=== PATIENT | male | born 1985 | race American Indian/Alaskan Native ===

== ENCOUNTER 2016-04-28 08:34 | Emergency (ER) | payer SELFPAY ==
[2016-04-28 09:01] VITALS: BP 143/111
[2016-04-28] MEDS ORDERED: Sodium Chloride 0.9% 10 ML Syringe FLUSH PRN (09:07)
[2016-04-28] MEDS ORDERED: Ondansetron 4 MG/2 ML SDV IV ONE (09:08)
[2016-04-28] MEDS ORDERED: Ketorolac 30 MG/ML SDV IVPUSH ONE (09:08)
--- NOTE | 2016-04-28 09:10 | EDM.PDOC ---
ED HPI RENAL/ - General Chief Complaint: Genitourinary Problem Stated Complaint: UNABLE TO EAT, STOMACH PAIN Time Seen by Provider: 04/28/16 09:05 Source of Information: Reports: Patient, Old records, RN, RN notes reviewed History Limitations: Reports: No limitations - History of Present Illness INITIAL COMMENTS - FREE TEXT/NARRATIVE: C/O 1 weeks duration of fever/chills, mild frontal CHAPMAN, suprapubic pressure and nausea. Now c/o LUQ abdominal pain and left flank pain. Admits to mild sore throat. Denies dysuria, hematuria, STD exposure, or penile discharge. 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 [No Known Home Meds] 04/28/16 [History] Past Medical History HEENT History: Reports: Other (see below) (dental decay) Musculoskeletal History: Reports: Back pain, chronic Psychiatric History: Reports: Anxiety, Panic attack Social & Family History - Family History Family Medical History: Noncontributory - Tobacco Use Smoking Status *Q: Current Every Day Smoker Years of Tobacco use: 10 Packs/Tins Daily: 1 Used Tobacco, but Quit: No Second Hand Smoke Exposure: Yes - Caffeine Use Caffeine Use: Reports: Soda - Alcohol Use Days Per Week of Alcohol Use: 0 - Recreational Drug Use Recreational Drug Use: No - Sexual History Sexual History: Reports: Sexually active - Living Situation & Occupation Living situation: Reports: with family Occupation: employed ED ROS GENERAL - Review of Systems Review Of Systems: ROS reveals no pertinent complaints other than HPI. ED EXAM, RENAL/ - Physical Exam Exam: See Below Exam Limited By: No limitations General Appearance: alert, WD/WN, no apparent distress Eye Exam: bilateral eye: normal inspection Ears: normal external exam, normal canal, hearing grossly normal, normal TMs Nose: normal inspection, normal mucosa, no blood Throat/Mouth: Normal lips, Normal teeth, Normal voice, No airway compromise, Other (pharyngeal erythema, no exudates) Head: atraumatic, normocephalic Neck: normal inspection, supple, non-tender, full range of motion. No: lymphadenopathy (L), lymphadenopathy (R) Respiratory/Chest: no respiratory distress, lungs clear, normal breath sounds, no accessory muscle use, chest non-tender Cardiovascular: regular rate, rhythm, tachycardia GI/Abdominal: normal bowel sounds, soft, no organomegaly, no distention, no abnormal bruit, no mass, tender (LUQ and left CVA). No: guarding, rigid, rebound (Male) Exam: Deferred Rectal (Males) Exam: Deferred Back Exam: full range of motion, CVA tenderness (L). No: decreased range of motion, muscle spasm, paraspinal tenderness, vertebral tenderness Extremities: normal inspection, normal range of motion, non-tender, no pedal edema, normal capillary refill. No: joint swelling Neurological: alert, oriented, CN II-XII intact, normal cognition, normal gait, no motor/sensory deficits Psychiatric: normal affect, normal mood Skin Exam: Warm, Dry, Intact, Normal color, No rash Course - Vital Signs Last Recorded V/S: Last Vital Signs Temp 36.6 C 04/28/16 09:01 Pulse 108 H 04/28/16 09:01 Resp 16 04/28/16 09:01 BP 143/111 H 04/28/16 09:01 Pulse Ox 100 04/28/16 09:01 - Orders/Labs/Meds Orders: Active Orders 24 hr Category Date Time Status Peripheral IV Care [RC] . DIRECTED Care 04/28/16 09:07 Active CHLAMYDIA TRACHOMATIS/GC AMPLF Routine Lab 04/28/16 08:50 Received Sodium Chloride 0.9% [Saline Flush] Med 04/28/16 09:07 Active 10 ml FLUSH ASDIRECTED PRN Peripheral IV Insertion Adult [OM.PC] Stat Oth 04/28/16 09:07 Ordered Medication Orders Sodium Chloride (Saline Flush) 10 ml FLUSH ASDIRECTED PRN PRN Reason: Keep Vein Open Last Admin: 04/28/16 09:21 Dose: 10 ml Labs: Laboratory Tests 04/28/16 04/28/16 04/28/16 Range/Units 08:50 08:50 09:10 WBC 6.2 (5.0-10.0) 10^3/uL RBC 5.35 (4.6-6.2) 10^6/uL Hgb 16.0 (14.0-18.0) g/dL Hct 47.0 (40.0-54.0) % MCV 87.9 (80-100) fL MCH 29.9 (27.0-34.0) pg MCHC 34.0 (33.0-35.0) g/dL Plt Count 257 (150-450) 10^3/uL Neut % (Auto) 68.8 (42.2-75.2) % Lymph % (Auto) 25.4 (20.5-50.1) % [place] % (Auto) 4.7 (2-8) % Eos % (Auto) 0.8 L (1.0-3.0) % Baso % (Auto) 0.3 (0.0-1.0) % Sodium (135-145) mmol/L Potassium (3.6-5.0) mmol/L Chloride (101-111) mmol/L Carbon Dioxide (21.0-31.0) mmol/L Anion Gap BUN (7-18) mg/dL Creatinine (0.6-1.3) mg/dL Est Cr Clr Drug Dosing mL/min Estimated GFR (MDRD) BUN/Creatinine Ratio Glucose (74-105) mg/dL Calcium (8.4-10.2) mg/dl Total Bilirubin (0.2-1.0) mg/dL AST (10-42) IU/L ALT (10-60) IU/L Alkaline Phosphatase (42-121) IU/L Total Protein (6.7-8.2) g/dl Albumin (3.2-5.5) g/dl Globulin Albumin/Globulin Ratio Amylase (28-100) U/L Lipase (22-51) U/L Urine Color Yellow (YELLOW) Urine Appearance Slightly cloudy (CLEAR) Urine pH 7.5 (5.0-9.0) Ur Specific [place] 1.020 (1.005-1.030) Urine Protein Negative (NEGATIVE) Urine Glucose (UA) Negative (NEGATIVE) Urine Ketones Negative (NEGATIVE) Urine Occult Blood Negative (NEGATIVE) Urine Nitrite Negative (NEGATIVE) Urine Bilirubin Negative (NEGATIVE) Urine Urobilinogen 0.2 (0.2-1.0) mg/dL Ur Leukocyte Esterase Negative (NEGATIVE) Urine RBC 0-5 /HPF Urine WBC 0-5 (0-5/HPF) /HPF Ur Epithelial Cells Rare /HPF Urine Mucus Few H /LPF Urine Opiates Screen Negative (NEGATIVE) Ur Oxycodone Screen Negative (NEGATIVE) Urine Methadone Screen Negative (NEGATIVE) Ur Barbiturates Screen Negative (NEGATIVE) U Tricyclic Antidepress Negative (NEGATIVE) Ur Phencyclidine Scrn Negative (NEGATIVE) Ur Amphetamine Screen Negative (NEGATIVE) U Methamphetamines Scrn Negative (NEGATIVE) Urine MDMA Screen Negative (NEGATIVE) U Benzodiazepines Scrn Negative (NEGATIVE) Urine Cocaine Screen Negative (NEGATIVE) U Marijuana (THC) Screen Negative (NEGATIVE) 04/28/16 Range/Units 09:10 WBC (5.0-10.0) 10^3/uL RBC (4.6-6.2) 10^6/uL Hgb (14.0-18.0) g/dL Hct (40.0-54.0) % MCV (80-100) fL MCH (27.0-34.0) pg MCHC (33.0-35.0) g/dL Plt Count (150-450) 10^3/uL Neut % (Auto) (42.2-75.2) % Lymph % (Auto) (20.5-50.1) % [place] % (Auto) (2-8) % Eos % (Auto) (1.0-3.0) % Baso % (Auto) (0.0-1.0) % Sodium 137 (135-145) mmol/L Potassium 3.5 L (3.6-5.0) mmol/L Chloride 101 (101-111) mmol/L Carbon Dioxide 26.0 (21.0-31.0) mmol/L Anion Gap 13.5 BUN 10 (7-18) mg/dL Creatinine 0.8 (0.6-1.3) mg/dL Est Cr Clr Drug Dosing 145.11 mL/min Estimated GFR (MDRD) > 60 BUN/Creatinine Ratio 12.50 Glucose 108 H (74-105) mg/dL Calcium 9.1 (8.4-10.2) mg/dl Total Bilirubin 1.2 H (0.2-1.0) mg/dL AST 27 (10-42) IU/L ALT 36 (10-60) IU/L Alkaline Phosphatase 65 (42-121) IU/L Total Protein 7.7 (6.7-8.2) g/dl Albumin 4.5 (3.2-5.5) g/dl Globulin 3.2 Albumin/Globulin Ratio 1.41 Amylase 48 (28-100) U/L Lipase 27 (22-51) U/L Urine Color (YELLOW) Urine Appearance (CLEAR) Urine pH (5.0-9.0) Ur Specific [place] (1.005-1.030) Urine Protein (NEGATIVE) Urine Glucose (UA) (NEGATIVE) Urine Ketones (NEGATIVE) Urine Occult Blood (NEGATIVE) Urine Nitrite (NEGATIVE) Urine Bilirubin (NEGATIVE) Urine Urobilinogen (0.2-1.0) mg/dL Ur Leukocyte Esterase (NEGATIVE) Urine RBC /HPF Urine WBC (0-5/HPF) /HPF Ur Epithelial Cells /HPF Urine Mucus /LPF Urine Opiates Screen (NEGATIVE) Ur Oxycodone Screen (NEGATIVE) Urine Methadone Screen (NEGATIVE) Ur Barbiturates Screen (NEGATIVE) U Tricyclic Antidepress (NEGATIVE) Ur Phencyclidine Scrn (NEGATIVE) Ur Amphetamine Screen (NEGATIVE) U Methamphetamines Scrn (NEGATIVE) Urine MDMA Screen (NEGATIVE) U Benzodiazepines Scrn (NEGATIVE) Urine Cocaine Screen (NEGATIVE) U Marijuana (THC) Screen (NEGATIVE) Rapid strep: Positive Meds: Medications Generic Name Dose Route Start Last Admin Trade Name Freq PRN Reason Stop Dose Admin Sodium Chloride 10 ml 04/28/16 09:07 04/28/16 09:21 Saline Flush FLUSH 10 ml ASDIRECTED PRN Administration Keep Vein Open Discontinued Medications Generic Name Dose Route Start Last Admin Trade Name Freq PRN Reason Stop Dose Admin Azithromycin 1,000 mg 04/28/16 09:31 04/28/16 09:39 Zithromax PO 04/28/16 09:32 1,000 mg ONETIME ONE Administration Sodium Chloride 1,000 mls @ 999 mls/hr 04/28/16 09:30 04/28/16 09:38 Normal Saline IV 04/28/16 10:30 999 mls/hr .BOLUS ONE Administration Ceftriaxone Sodium 1 gm/ 50 mls @ 100 mls/hr 04/28/16 09:31 04/28/16 09:39 Sodium Chloride IV 04/28/16 10:00 100 mls/hr ONETIME ONE Administration Ketorolac Tromethamine 30 mg 04/28/16 09:08 04/28/16 09:21 Toradol IVPUSH 04/28/16 09:09 30 mg ONETIME ONE Administration Ondansetron HCl 4 mg 04/28/16 09:08 04/28/16 09:21 Zofran IV 04/28/16 09:09 4 mg ONETIME ONE Administration Departure - Departure Time of Disposition: 10:47 Disposition: Home, Self-Care 01 Condition: good Clinical Impression: Strep pharyngitis, Acute left flank pain Instructions: Strep Throat, [id number], Flank Pain, [id number] Forms: ED Department Discharge Additional Instructions: Rx: Amoxicillin 500mg Follow up in clinic in 5 to 7 days for recheck. - My Orders Last 24 Hours: My Active Orders 04/28/16 08:50 CHLAMYDIA TRACHOMATIS/GC AMPLF Routine 04/28/16 09:07 Peripheral IV Care [RC] . DIRECTED Sodium Chloride 0.9% [Saline Flush] 10 ml FLUSH ASDIRECTED PRN Peripheral IV Insertion Adult [OM.PC] Stat - Assessment/Plan Last 24 Hours: My Active Orders 04/28/16 08:50 CHLAMYDIA TRACHOMATIS/GC AMPLF Routine 04/28/16 09:07 Peripheral IV Care [RC] . DIRECTED Sodium Chloride 0.9% [Saline Flush] 10 ml FLUSH ASDIRECTED PRN Peripheral IV Insertion Adult [OM.PC] Stat
[2016-04-28] MEDS ORDERED: Sodium Chloride 0.9% 1,000 ML IV ONE (09:30)
[2016-04-28] MEDS ORDERED: Azithromycin 250 MG Tab PO ONE (09:31)
[2016-04-28] MEDS ORDERED: cefTRIAXone 1 GM in Sodium Chloride 0.9% 50 ML IV ONE (09:31)
[2016-04-28 09:38] LABS: CHLORIDE,CL 101 mmol/L (101-111); SODIUM,NA 137 mmol/L (135-145)
== END 2016-04-28 11:05 | disposition home or self-care (01) ==
LOC: DL.ED 08:34
DX: J02.0 Streptococcal pharyngitis (principal); R10.12 Left upper quadrant pain; F41.9 Anxiety disorder, unspecified; F17.210 Nicotine dependence, cigarettes, uncomplicated
CPT/HCPCS: 36415; 80053; 80305; 81001; 82150; 83690; 85025; 87430; 87491; 87591; 96361; 96365; 96375; 99284; A9270; J0696; J1885; J2405; J7030; J7050

== ENCOUNTER 2016-05-03 18:13 | Emergency (ER) | payer OTHER ==
[2016-05-03 20:08] LABS: CHLORIDE,CL 104 mmol/L (101-111); SODIUM,NA 139 mmol/L (135-145)
[2016-05-03] MEDS ORDERED: Ketorolac 30 MG/ML SDV IVPUSH ONE (20:38)
[2016-05-03] MEDS ORDERED: Iopamidol 612 MG/ML 100 ML Bottle IVPUSH ONE (20:38)
[2016-05-03] MEDS ORDERED: Iopamidol 612 MG/ML 75 ML Bottle IVPUSH ONE (20:39)
[2016-05-03] MEDS ORDERED: Sodium Chloride 0.9% 1,000 ML IV SCH (20:45)
--- NOTE | 2016-05-03 22:03 | EDM.PDOC ---
ED HPI GI/ABDOMINAL - General Chief Complaint: Genitourinary Problem Stated Complaint: KIDNEY INFECTION Time Seen by Provider: 05/03/16 19:10 Source of Information: Reports: Patient History Limitations: Reports: No limitations - History of Present Illness INITIAL COMMENTS - FREE TEXT/NARRATIVE: c/o left side abdominal pain, Reports seen on Tuesday for kidney infection, pain not improving, vomited one time this am - Related Data Allergies/ADRs: Allergies Allergy/AdvReac Type Severity Reaction Status Date / Time No Known Allergies Allergy Verified 05/03/16 18:51 Home Meds: Home Meds Amoxicillin [Amoxil] 500 mg PO Q8H 05/03/16 [History] Ibuprofen [Advil] 600 mg PO Q6H PRN 05/03/16 [History] Past Medical History - Past Health History Medical/Surgical History: Denies Medical/Surgical History HEENT History: Reports: Other (see below) (dental decay) Cardiovascular History: Reports: None Respiratory History: Reports: None Gastrointestinal History: Reports: None Genitourinary History: Reports: None Musculoskeletal History: Reports: Back pain, chronic Neurological History: Reports: None Psychiatric History: Reports: Anxiety, Panic attack Endocrine/Metabolic History: Reports: None Hematologic History: Reports: None Immunologic History: Reports: None Oncologic (Cancer) History: Reports: None Dermatologic History: Reports: None - Infectious Disease History Infectious Disease History: Reports: None - Past Surgical History Cardiovascular Surgical History: Reports: None Male Surgical History: Reports: None Oncologic Surgical History: Reports: None Social & Family History - Family History Family Medical History: Noncontributory - Tobacco Use Smoking Status *Q: Current Every Day Smoker Years of Tobacco use: 10 Packs/Tins Daily: 0.5 Used Tobacco, but Quit: No Second Hand Smoke Exposure: Yes - Caffeine Use Caffeine Use: Reports: Soda - Alcohol Use Days Per Week of Alcohol Use: 0 - Recreational Drug Use Recreational Drug Use: No - Sexual History Sexual History: Reports: Sexually active - Living Situation & Occupation Living situation: Reports: with family Occupation: employed ED ROS GENERAL - Review of Systems Review Of Systems: See Below Constitutional: Reports: no symptoms HEENT: Reports: No symptoms Respiratory: Reports: no symptoms Cardiovascular: Reports: No symptoms GI/Abdominal: Reports: Abdominal pain (LUQ), Other (last BM this am, vomited this am) : Reports: no symptoms Musculoskeletal: Reports: no symptoms Skin: Reports: no symptoms Neurological: Reports: no symptoms Psychiatric: Reports: No symptoms ED EXAM, GI/ABD - Physical Exam Exam: See Below Exam Limited By: No limitations General Appearance: alert, mild distress (curled up position holding left upper side) Eyes: bilateral: EOMI Ears: normal external exam Nose: normal inspection Throat/Mouth: Normal inspection Head: atraumatic, normocephalic Neck: normal inspection, full range of motion Respiratory/Chest: no respiratory distress, lungs clear, normal breath sounds Cardiovascular: normal peripheral pulses, regular rate, rhythm GI/Abdominal: normal bowel sounds, soft, tenderness, guarding (LUQ). No: distention Neurological: alert Course - Vital Signs Last Recorded V/S: Last Vital Signs Temp 97.4 F 05/03/16 22:04 Pulse 66 05/03/16 22:04 Resp 15 05/03/16 22:04 BP 119/75 05/03/16 22:04 Pulse Ox 99 05/03/16 22:04 - Orders/Labs/Meds Labs: Laboratory Tests 05/03/16 05/03/16 05/03/16 Range/Units 18:56 18:56 19:42 WBC 7.5 (5.0-10.0) 10^3/uL RBC 4.96 (4.6-6.2) 10^6/uL Hgb 14.9 (14.0-18.0) g/dL Hct 44.2 (40.0-54.0) % MCV 89.1 (80-100) fL MCH 30.0 (27.0-34.0) pg MCHC 33.7 (33.0-35.0) g/dL Plt Count 271 (150-450) 10^3/uL Neut % (Auto) 72.8 (42.2-75.2) % Lymph % (Auto) 19.3 L (20.5-50.1) % Saline % (Auto) 6.8 (2-8) % Eos % (Auto) 0.7 L (1.0-3.0) % Baso % (Auto) 0.4 (0.0-1.0) % Sodium (135-145) mmol/L Potassium (3.6-5.0) mmol/L Chloride (101-111) mmol/L Carbon Dioxide (21.0-31.0) mmol/L Anion Gap BUN (7-18) mg/dL Creatinine (0.6-1.3) mg/dL Est Cr Clr Drug Dosing Estimated GFR (MDRD) BUN/Creatinine Ratio Glucose (74-105) mg/dL Calcium (8.4-10.2) mg/dl Total Bilirubin (0.2-1.0) mg/dL AST (10-42) IU/L ALT (10-60) IU/L Alkaline Phosphatase (42-121) IU/L Total Protein (6.7-8.2) g/dl Albumin (3.2-5.5) g/dl Globulin Albumin/Globulin Ratio Amylase (28-100) U/L Lipase (22-51) U/L Urine Color Yellow (YELLOW) Urine Appearance Cloudy (CLEAR) Urine pH 6.5 (5.0-9.0) Ur Specific [place] 1.025 (1.005-1.030) Urine Protein Negative (NEGATIVE) Urine Glucose (UA) Negative (NEGATIVE) Urine Ketones Negative (NEGATIVE) Urine Occult Blood Negative (NEGATIVE) Urine Nitrite Negative (NEGATIVE) Urine Bilirubin Negative (NEGATIVE) Urine Urobilinogen 0.2 (0.2-1.0) mg/dL Ur Leukocyte Esterase Negative (NEGATIVE) Urine RBC 0-5 /HPF Urine WBC 0-5 (0-5/HPF) /HPF Ur Epithelial Cells Rare /HPF Urine Bacteria Rare (0-FEW/HPF) /HPF Hyaline Casts Rare H /LPF Urine Mucus Moderate H /LPF Urine Opiates Screen Negative (NEGATIVE) Ur Oxycodone Screen Negative (NEGATIVE) Urine Methadone Screen Negative (NEGATIVE) Ur Barbiturates Screen Negative (NEGATIVE) U Tricyclic Antidepress Negative (NEGATIVE) Ur Phencyclidine Scrn Negative (NEGATIVE) Ur Amphetamine Screen Negative (NEGATIVE) U Methamphetamines Scrn Negative (NEGATIVE) Urine MDMA Screen Negative (NEGATIVE) U Benzodiazepines Scrn Negative (NEGATIVE) Urine Cocaine Screen Negative (NEGATIVE) U Marijuana (THC) Screen Negative (NEGATIVE) Monoscreen 05/03/16 Range/Units 19:42 WBC (5.0-10.0) 10^3/uL RBC (4.6-6.2) 10^6/uL Hgb (14.0-18.0) g/dL Hct (40.0-54.0) % MCV (80-100) fL MCH (27.0-34.0) pg MCHC (33.0-35.0) g/dL Plt Count (150-450) 10^3/uL Neut % (Auto) (42.2-75.2) % Lymph % (Auto) (20.5-50.1) % Saline % (Auto) (2-8) % Eos % (Auto) (1.0-3.0) % Baso % (Auto) (0.0-1.0) % Sodium 139 (135-145) mmol/L Potassium 3.5 L (3.6-5.0) mmol/L Chloride 104 (101-111) mmol/L Carbon Dioxide 26.0 (21.0-31.0) mmol/L Anion Gap 12.5 BUN 10 (7-18) mg/dL Creatinine 0.9 (0.6-1.3) mg/dL Est Cr Clr Drug Dosing TNP Estimated GFR (MDRD) > 60 BUN/Creatinine Ratio 11.11 Glucose 89 (74-105) mg/dL Calcium 9.0 (8.4-10.2) mg/dl Total Bilirubin 1.2 H (0.2-1.0) mg/dL AST 32 (10-42) IU/L ALT 34 (10-60) IU/L Alkaline Phosphatase 54 (42-121) IU/L Total Protein 7.5 (6.7-8.2) g/dl Albumin 4.4 (3.2-5.5) g/dl Globulin 3.1 Albumin/Globulin Ratio 1.42 Amylase 48 (28-100) U/L Lipase 32 (22-51) U/L Urine Color (YELLOW) Urine Appearance (CLEAR) Urine pH (5.0-9.0) Ur Specific [place] (1.005-1.030) Urine Protein (NEGATIVE) Urine Glucose (UA) (NEGATIVE) Urine Ketones (NEGATIVE) Urine Occult Blood (NEGATIVE) Urine Nitrite (NEGATIVE) Urine Bilirubin (NEGATIVE) Urine Urobilinogen (0.2-1.0) mg/dL Ur Leukocyte Esterase (NEGATIVE) Urine RBC /HPF Urine WBC (0-5/HPF) /HPF Ur Epithelial Cells /HPF Urine Bacteria (0-FEW/HPF) /HPF Hyaline Casts /LPF Urine Mucus /LPF Urine Opiates Screen (NEGATIVE) Ur Oxycodone Screen (NEGATIVE) Urine Methadone Screen (NEGATIVE) Ur Barbiturates Screen (NEGATIVE) U Tricyclic Antidepress (NEGATIVE) Ur Phencyclidine Scrn (NEGATIVE) Ur Amphetamine Screen (NEGATIVE) U Methamphetamines Scrn (NEGATIVE) Urine MDMA Screen (NEGATIVE) U Benzodiazepines Scrn (NEGATIVE) Urine Cocaine Screen (NEGATIVE) U Marijuana (THC) Screen (NEGATIVE) Monoscreen Negative Meds: Medications Discontinued Medications Generic Name Dose Route Start Last Admin Trade Name Stephane PRN Reason Stop Dose Admin Sodium Chloride 1,000 mls @ 999 mls/hr 05/03/16 20:45 05/03/16 20:48 Normal Saline IV 999 mls/hr ASDIRECTED JUANITA Administration Iopamidol 100 ml 05/03/16 20:38 Isovue-300 (61%) IVPUSH 05/03/16 20:39 ONETIME ONE Iopamidol 75 ml 05/03/16 20:39 05/03/16 21:02 Isovue-300 (61%) IVPUSH 05/03/16 20:40 75 ml ONETIME ONE Administration Ketorolac Tromethamine 30 mg 05/03/16 20:38 05/03/16 20:48 Toradol IVPUSH 05/03/16 20:39 30 mg ONETIME ONE Administration - Radiology Interpretation Free Text/Narrative:: CT abdomen-large volume stool- constipation - Re-Assessments/Exams Free Text/Narrative Re-Assessment/Exam: 05/03/16 22:03 Patient informed of previous test result with positive chlamydia and that he should notify sexual contacts. Informed of todays CT results and recommendations. Agreeable. No questions. Departure - Departure Time of Disposition: 21:57 Disposition: Home, Self-Care 01 Condition: good Clinical Impression: Abdominal pain Qualifiers: Abdominal location: left upper quadrant Qualified Code(s): R10.12 - Left upper quadrant pain Constipation Qualifiers: Constipation type: slow transit constipation Qualified Code(s): K59.01 - Slow transit constipation Instructions: Constipation, Adult Forms: ED Department Discharge Additional Instructions: magnesium citrate one bottle- (available at [email or web address] or pharmacies) increase fluids, fruit and fiber in diet miralax one capful daily
[2016-05-03 22:06] VITALS: BP 119/75
== END 2016-05-03 22:08 | disposition home or self-care (01) ==
LOC: DL.ED 18:13
DX: R10.12 Left upper quadrant pain (principal); K59.01 Slow transit constipation; A56.8 Sexually transmitted chlamydial infection of other sites; F41.9 Anxiety disorder, unspecified; F17.210 Nicotine dependence, cigarettes, uncomplicated
CPT/HCPCS: 36415; 74177; 80053; 80305; 81001; 82150; 83690; 85025; 86308; 96361; 96374; 99284; J1885; J7030; Q9967

== ENCOUNTER 2016-05-09 10:45 | Emergency (ER) | payer SELFPAY ==
[2016-05-09 11:00] VITALS: BP 134/103
[2016-05-09] MEDS ORDERED: Ondansetron 4 MG Tab.DIS PO ONE (12:06)
[2016-05-09] MEDS ORDERED: Magnesium Hydroxide 400 MG/5 ML Susp 30 ML Cup PO ONE (12:06)
--- NOTE | 2016-05-09 16:22 | ER ---
SUBJECTIVE: The patient is a 30-year-old male, who just got off antibiotics for STD. He states he had chlamydia, he has some vague nausea, some vague abdominal discomfort. States his bowel and bladder were working fine. No melena or BRBPR. No dysuria. No hematuria. No fevers. No chest pain. No shortness of breath. He states the discomfort when it comes is slightly crampy at the left lower quadrant area. Again, he denies any fevers or constipation or diarrhea. He states he has had it on and off for about 3 weeks. No night sweats. No ENT issues. No neck pain or stiffness. PAST MEDICAL HISTORY: Significant for chickenpox as a child. He has had an STD. He has anxiety and panic attacks. He has some back pain. CURRENT MEDICATIONS: Include p.r.n. ibuprofen. ALLERGIES: He denies any allergies. SOCIAL HISTORY: He uses tobacco, occasionally uses alcohol. REVIEW OF SYSTEMS: No fever or chills. No vomiting, just slight nausea, occasional mild abdominal discomfort in the left lower quadrant area, more crampy. No bowel or bladder changes. No dysuria, melena, or BRBPR. No chest pain or shortness of breath. OBJECTIVE: Vital stable: He is afebrile. A healthy-appearing smiling or ambulating around well, moves very easily. Appears nontoxic, appears in no pain and in no distress. HEENT: Normocephalic and atraumatic. Mucous membranes are moist. Conjunctivae are clear. No respiratory distress. Abdomen: Completely benign. It appears atraumatic. It appears the symptoms are more subjective than anything. Back: No CVAT. Extremities: Unremarkable. Skin: Clear. LABORATORY DATA: Urinalysis is obtained. It is yellow and clear. Negative leukocyte esterase, negative nitrites, drug screen is negative. I did give the patient a dose of milk of magnesia and also Zofran. He did remain stable, feels better, he was discharged home in stable and improved condition. ASSESSMENT: Mild nausea, resolved. PLAN: High-fiber diet, plenty of fluids, keep active. Follow up with PCP as needed. Prescription for Zofran to further nausea. Return for emergent issues. [facility] /[id number]
== END 2016-05-09 14:07 | disposition home or self-care (01) ==
LOC: DL.ED 10:45
DX: R11.0 Nausea (principal); R10.32 Left lower quadrant pain; F41.9 Anxiety disorder, unspecified
CPT/HCPCS: 80305; 81001; 99284; A9270; 99283

== ENCOUNTER 2018-03-10 21:06 | Emergency (ER) | payer OTHER ==
[2018-03-10 21:13] VITALS: BP 129/84
[2018-03-10] MEDS ORDERED: methylPREDNISolone Sodium Succinate 125 MG/2 ML SDV IM ONE (21:22)
[2018-03-10] MEDS ORDERED: Albuterol/Ipratropium 3.0-0.5 MG/3 ML Neb Soln NEB ONE (21:22)
--- NOTE | 2018-03-10 21:26 | EDM.PDOC ---
ED HPI GENERAL MEDICAL PROBLEM - General Chief Complaint: Respiratory Problem Stated Complaint: FLU [id number] Time Seen by Provider: 03/10/18 21:22 Source of Information: Reports: Patient History Limitations: Reports: No Limitations - History of Present Illness INITIAL COMMENTS - FREE TEXT/NARRATIVE: 1 week h/o cough. smoker Treatments [employer]: Reports: NSAIDS - Related Data Allergies Allergy/AdvReac Type Severity Reaction Status Date / Time No Known Allergies Allergy Verified 03/10/18 21:21 Home Meds: Home Meds Ibuprofen [Advil] 600 mg PO Q6H PRN 05/03/16 [History] Past Medical History - Past Health History Medical/Surgical History: Denies Medical/Surgical History HEENT History: Reports: Other (See Below) Cardiovascular History: Reports: None Respiratory History: Reports: None Gastrointestinal History: Reports: None Genitourinary History: Reports: None, STD Musculoskeletal History: Reports: Back Pain, Chronic Neurological History: Reports: None Psychiatric History: Reports: Anxiety, Panic Attack Endocrine/Metabolic History: Reports: None Hematologic History: Reports: None Immunologic History: Reports: None Oncologic (Cancer) History: Reports: None Dermatologic History: Reports: None - Infectious Disease History Infectious Disease History: Reports: None, Chicken Pox - Past Surgical History Head Surgeries/Procedures: Reports: None Cardiovascular Surgical History: Reports: None Male Surgical History: Reports: None Oncologic Surgical History: Reports: None Social & Family History - Family History Family Medical History: Noncontributory - Tobacco Use Smoking Status *Q: Current Every Day Smoker Years of Tobacco use: 10 Packs/Tins Daily: 10 - Caffeine Use Caffeine Use: Reports: Coffee - Recreational Drug Use Recreational Drug Use: No - Sexual History Sexual History: Reports: Sexually Active - Living Situation & Occupation Living situation: Reports: with Family Occupation: Employed ED ROS GENERAL - Review of Systems Review Of Systems: ROS reveals no pertinent complaints other than HPI. ED EXAM, GENERAL - Physical Exam Exam: See Below Exam Limited By: No Limitations General Appearance: Alert, WD/WN, Mild Distress, Other (cough spasm) Ears: Hearing Grossly Normal Throat/Mouth: Normal Voice, No Airway Compromise Head: Atraumatic Neck: Non-Tender, Full Range of Motion Respiratory/Chest: No Accessory Muscle Use, Rhonchi Cardiovascular: Regular Rate, Rhythm GI/Abdominal: Soft, Non-Tender Neurological: Alert, Oriented, Normal Cognition, Normal Gait, No Motor/Sensory Deficits Psychiatric: Normal Affect, Normal Mood Skin Exam: Warm, Dry, Normal Color Lymphatic: No Adenopathy Course - Vital Signs Last Recorded V/S: Last Vital Signs Temp 36.4 C 03/10/18 21:12 Pulse 83 03/10/18 21:12 Resp 16 03/10/18 21:12 BP 129/84 03/10/18 21:12 Pulse Ox 100 03/10/18 21:12 - Orders/Labs/Meds Orders: Active Orders 24 hr Category Date Time Status RT Aerosol Therapy [RC] ASDIRECTED Care 03/10/18 21:22 Active Meds: Medications Discontinued Medications Generic Name Dose Route Start Last Admin Trade Name Freq PRN Reason Stop Dose Admin Albuterol/Ipratropium 3 ml 03/10/18 21:22 03/10/18 21:29 Duoneb 3.0-0.5 Mg/3 Ml NEB 03/10/18 21:23 3 ml ONETIME ONE Administration Methylprednisolone Sodium Succinate 125 mg 03/10/18 21:22 03/10/18 21:28 Solu-Medrol IM 03/10/18 21:23 125 mg ONETIME ONE Administration Departure - Departure Time of Disposition: 21:45 Disposition: Home, Self-Care 01 Condition: Good Clinical Impression: Bronchospasm with bronchitis, acute - Discharge Information Instructions: Acute Bronchitis, Adult, [id number] Referrals: PCP,None [Primary Care Provider] - Forms: ED Department Discharge Additional Instructions: 1) cut back on smoking 2) drink lots of liquids 3) try ROBITUSSIN DM from [facility]; medrol dospak albuterol inhaler tid prn - My Orders Last 24 Hours: My Active Orders 03/10/18 21:22 RT Aerosol Therapy [RC] ASDIRECTED - Assessment/Plan Last 24 Hours: My Active Orders 03/10/18 21:22 RT Aerosol Therapy [RC] ASDIRECTED
== END 2018-03-10 21:45 | disposition home or self-care (01) ==
LOC: DL.ED 21:06
DX: J20.9 Acute bronchitis, unspecified (principal); F17.210 Nicotine dependence, cigarettes, uncomplicated
CPT/HCPCS: 96372; 99283; J2930; J7620-GY

== ENCOUNTER 2018-08-11 22:52 | Emergency (ER) | payer OTHER ==
[2018-08-11 23:04] VITALS: BP 117/62
--- NOTE | 2018-08-12 | EDM.PDOC ---
ED HPI GENERAL MEDICAL PROBLEM - General Chief Complaint: General Stated Complaint: fell at work Time Seen by Provider: 08/11/18 23:58 Source of Information: Reports: Patient History Limitations: Reports: No Limitations - History of Present Illness INITIAL COMMENTS - FREE TEXT/NARRATIVE: fell onto left hip tonight Left Hip Pain Score (Numeric/FACES): 5 - Related Data Allergies Allergy/AdvReac Type Severity Reaction Status Date / Time No Known Allergies Allergy Verified 08/11/18 22:59 Home Meds: Home Meds Ibuprofen [Advil] 600 mg PO Q6H PRN 05/03/16 [History] Past Medical History - Past Health History Medical/Surgical History: Denies Medical/Surgical History HEENT History: Reports: Other (See Below) Cardiovascular History: Reports: None Respiratory History: Reports: None Gastrointestinal History: Reports: None Genitourinary History: Reports: None, STD Musculoskeletal History: Reports: Back Pain, Chronic Neurological History: Reports: None Psychiatric History: Reports: Anxiety, Panic Attack Endocrine/Metabolic History: Reports: None Hematologic History: Reports: None Immunologic History: Reports: None Oncologic (Cancer) History: Reports: None Dermatologic History: Reports: None - Infectious Disease History Infectious Disease History: Reports: None, Chicken Pox - Past Surgical History Head Surgeries/Procedures: Reports: None Cardiovascular Surgical History: Reports: None Male Surgical History: Reports: None Oncologic Surgical History: Reports: None Social & Family History - Family History Family Medical History: Noncontributory - Caffeine Use Caffeine Use: Reports: Coffee - Sexual History Sexual History: Reports: Sexually Active - Living Situation & Occupation Living situation: Reports: with Family Occupation: Employed ED ROS GENERAL - Review of Systems Review Of Systems: ROS reveals no pertinent complaints other than HPI. ED EXAM, GENERAL - Physical Exam Exam: See Below Exam Limited By: No Limitations General Appearance: Alert, WD/WN, Mild Distress, Other (discomfort) Ears: Hearing Grossly Normal Throat/Mouth: Normal Voice, No Airway Compromise Head: Atraumatic Neck: Non-Tender, Full Range of Motion Respiratory/Chest: No Respiratory Distress Cardiovascular: Regular Rate, Rhythm GI/Abdominal: Soft, Non-Tender Extremities: Other (left hip tender R/P, NV wnl, gait limited to pain,) Neurological: Alert, Oriented, Normal Cognition, No Motor/Sensory Deficits Psychiatric: Flat Affect Skin Exam: Warm, Dry, Normal Color Lymphatic: No Adenopathy Course - Vital Signs Last Recorded V/S: Last Vital Signs Temp 37.1 C 08/11/18 22:59 Pulse 88 08/11/18 22:59 Resp 16 08/11/18 22:59 BP 117/62 08/11/18 22:59 Pulse Ox 99 08/11/18 22:59 - Re-Assessments/Exams Free Text/Narrative Re-Assessment/Exam: 08/12/18 00:47 negative results discussed with pt who is feeling fine. Departure - Departure Time of Disposition: 00:47 Disposition: Home, Self-Care 01 Condition: Good Clinical Impression: Contusion of hip, left Qualifiers: Encounter type: initial encounter Qualified Code(s): S70.02XA - Contusion of left hip, initial encounter - Discharge Information Instructions: Contusion, [id number] Forms: ED Department Discharge Additional Instructions: 1) elevate leg as much as possible next 48 hours 2) take tylenol or motrin as needed 3) follow up at clinic
== END 2018-08-12 00:56 | disposition home or self-care (01) ==
LOC: DL.ED 22:52
DX: S70.02XA Contusion of left hip, initial encounter (principal); Y99.0 Civilian activity done for income or pay; W18.30XA Fall on same level, unspecified, initial encounter
CPT/HCPCS: 99283-25

== ENCOUNTER 2018-10-14 02:27 | Emergency (ER) | payer OTHER ==
[2018-10-14 02:35] VITALS: BP 116/89
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
== END 2018-10-14 04:10 | disposition home or self-care (01) ==
LOC: DL.ED 02:27
DX: S90.121A Contusion of right lesser toe(s) without damage to nail, initial encounter (principal); S30.0XXA Contusion of lower back and pelvis, initial encounter; S20.229A Contusion of unspecified back wall of thorax, initial encounter; R60.1 Generalized edema; S80.211A Abrasion, right knee, initial encounter; Y04.8XXA Assault by other bodily force, initial encounter
CPT/HCPCS: 70250; 99284-25

== ENCOUNTER 2018-10-14 10:45 | Emergency (ER) | payer OTHER ==
[2018-10-14] MEDS ORDERED: Iopamidol 612 MG/ML 100 ML Bottle IVPUSH ONE (11:41)
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
[2018-10-14 12:13] LABS: ANION GAP 13.7; CHLORIDE,CL 100 mmol/L (101-111); SODIUM,NA 139 mmol/L (135-145)
[2018-10-14 12:17] LABS: ACETAMINOPHEN < 10 ug/mL
== END 2018-10-14 14:10 | disposition left against medical advice (07) ==
LOC: DL.ED 10:45
DX: S02.40EA Zygomatic fracture, right side, initial encounter for closed fracture (principal); S20.222A Contusion of left back wall of thorax, initial encounter; S00.03XA Contusion of scalp, initial encounter; S10.93XA Contusion of unspecified part of neck, initial encounter; S00.11XA Contusion of right eyelid and periocular area, initial encounter; M25.552 Pain in left hip; Y04.0XXA Assault by unarmed brawl or fight, initial encounter
CPT/HCPCS: 36415; 70450; 70486; 71101; 71260; 72125; 72128; 72131; 74177; 80053; 80305; 81001; 85025; 99285; G0480; Q9967

== ENCOUNTER 2022-01-19 16:45 | Emergency (ER) | payer MEDICAID ==
[2022-01-19 17:27] VITALS: BP 138/90; PULSE 85
[2022-01-19 20:55] LABS: AMPHETAMINES,URINE NEGATIVE (NEGATIVE); BARBITURATES,URINE NEGATIVE (NEGATIVE); BENZODIAZEPINE,URINE NEGATIVE (NEGATIVE); MDMA (ECSTASY), URINE NEGATIVE (NEGATIVE); METHADONE,URINE NEGATIVE (NEGATIVE); METHAMPHETAMINES,URINE NEGATIVE (NEGATIVE); OPIATES,URINE NEGATIVE (NEGATIVE); OXYCODONE,URINE NEGATIVE (NEGATIVE); PHENCYCLIDINE,URINE NEGATIVE (NEGATIVE); TCA,URINE NEGATIVE (NEGATIVE)
[2022-01-19 20:58] LABS: ANION GAP 11.3 mEq/L (7-13); CHLORIDE,CL 102 mmol/L (98-107); SODIUM,NA 139 mmol/L (136-145)
[2022-01-19 21:08] LABS: ESTIMATED GFR 97 mL/min (>=60)
== END 2022-01-19 22:59 | disposition home or self-care (01) ==
LOC: DL.ED 16:45
DX: F41.9 Anxiety disorder, unspecified (principal); Z72.0 Tobacco use
CPT/HCPCS: 36415; 71045; 80053; 80305-QW; 80307; 82150; 83690; 83735; 83880; 84443; 84484; 85025; 86140; 93005; 99284

== ENCOUNTER 2023-01-25 14:42 | Emergency (ER) | payer MEDICAID ==
[2023-01-25] MEDS ORDERED: Sodium Chloride 0.9% 10 ML Syringe FLUSH PRN (14:53)
[2023-01-25 15:02] LABS: BASOPHILS PERCENT AUTO 0.4 % (0.0-1.0); EOSINOPHILS PERCENT AUTO 1.9 % (1.0-3.0); HEMOGLOBIN 16.4 g/dL (14.0-18.0); LYMPHOCYTES PERCENT AUTO 39.8 % (20.5-50.1); MEAN CORPUSCULAR HGB CONC 34.2 g/dL (33.0-35.0); MONOCYTES PERCENT AUTO 6.8 % (2-8); NEUTROPHILS PERCENT AUTO 51.1 % (42.2-75.2); PLATELET COUNT,PLT 280 10^3/uL (150-450); RED BLOOD CELL COUNT 5.65 10^6/uL (4.6-6.2); WHITE BLOOD CELL COUNT,WBC 6.7 10^3/uL (5.0-10.0)
[2023-01-25 15:15] VITALS: BP 160/99; PULSE 120
[2023-01-25 15:17] LABS: PROTHROMBIN TIME 9.9 SEC (9.0-12.0)
[2023-01-25 15:30] LABS: A/G RATIO 1.1; ALANINE AMINOTRANSFERASE,ALT 43 U/L (16-63); ALBUMIN 4.6 g/dL (3.4-5.0); ALKALINE PHOSPHATASE 96 U/L (46-116); AMYLASE 47 U/L (25-115); ANION GAP 9.4 mEq/L (7-13); ASPARTATE AMNIOTRANSFERASE,AST 26 U/L (15-37); BLOOD UREA NITROGEN,BUN 12 mg/dL (7-18); BUN/CREATININE RATIO 11.4 (No establ ref range); C-REACTIVE PROTEIN < 0.50 ng/dL (<=0.50); CALCIUM 9.6 mg/dL (8.5-10.1); CARBON DIOXIDE,CO2 32 mmol/L (21-32); CHLORIDE,CL 100 mmol/L (98-107); CREATININE 1.05 mg/dL (0.70-1.30); EST CRCL DRUG DOSING (CG) 103.59 mL/min; ESTIMATED GFR 94 mL/min (>=60); GLUCOSE RANDOM 106 mg/dL (70-99); LIPASE 40 U/L (16-77); MAGNESIUM 2.1 mg/dL (1.8-2.4); POTASSIUM,K 3.4 mmol/L (3.5-5.1); PROTEIN TOTAL,TP 8.7 g/dL (6.4-8.2); SODIUM,NA 138 mmol/L (136-145)
[2023-01-25 15:36] LABS: D-DIMER QUANTITATIVE < 100 ng/mL (0-400)
[2023-01-25] MEDS ORDERED: Iopamidol 612 MG/ML 100 ML Bottle IVPUSH ONE (15:47)
[2023-01-25 16:05] LABS: FOLIC ACID 14.6 ng/mL (8.6-58.9)
== END 2023-01-25 17:12 | disposition home or self-care (01) ==
LOC: DL.ED 14:42
DX: R07.89 Other chest pain (principal); F17.210 Nicotine dependence, cigarettes, uncomplicated; Z79.899 Other long term (current) drug therapy
CPT/HCPCS: 36415; 70450; 71260; 80053; 82150; 82607; 82746; 83690; 83735; 84443; 84484; 85025; 85379; 85610; 86140; 93005; 93010; 99284; 99285; J3490; Q9967

== ENCOUNTER 2023-01-30 15:14 | Emergency (ER) | payer MEDICAID ==
[2023-01-30] MEDS ORDERED: Sodium Chloride 0.9% 10 ML Syringe FLUSH PRN (15:24)
[2023-01-30 15:40] LABS: BASOPHILS PERCENT AUTO 0.3 % (0.0-1.0); EOSINOPHILS PERCENT AUTO 1.2 % (1.0-3.0); HEMATOCRIT 47.1 % (40.0-54.0); HEMOGLOBIN 15.9 g/dL (14.0-18.0); LYMPHOCYTES PERCENT AUTO 19.6 % (20.5-50.1); MEAN CORPUSCULAR HEMOGLOBIN 28.6 pg (27.0-34.0); MEAN CORPUSCULAR HGB CONC 33.8 g/dL (33.0-35.0); MEAN CORPUSCULAR VOLUME 84.7 fL (80-100); MONOCYTES PERCENT AUTO 5.3 % (2-8); NEUTROPHILS PERCENT AUTO 73.6 % (42.2-75.2); PLATELET COUNT,PLT 265 10^3/uL (150-450); RED BLOOD CELL COUNT 5.56 10^6/uL (4.6-6.2); WHITE BLOOD CELL COUNT,WBC 11.8 10^3/uL (5.0-10.0)
[2023-01-30 15:59] LABS: PROTHROMBIN TIME 10.1 SEC (9.0-12.0)
[2023-01-30 16:01] LABS: A/G RATIO 1.1; ALANINE AMINOTRANSFERASE,ALT 41 U/L (16-63); ALBUMIN 4.1 g/dL (3.4-5.0); ALKALINE PHOSPHATASE 88 U/L (46-116); ANION GAP 9.5 mEq/L (7-13); ASPARTATE AMNIOTRANSFERASE,AST 26 U/L (15-37); BILIRUBIN TOTAL 0.8 mg/dL (0.2-1.0); BLOOD UREA NITROGEN,BUN 12 mg/dL (7-18); BUN/CREATININE RATIO 11.4 (No establ ref range); C-REACTIVE PROTEIN < 0.50 ng/dL (<=0.50); CALCIUM 9.1 mg/dL (8.5-10.1); CARBON DIOXIDE,CO2 30 mmol/L (21-32); CHLORIDE,CL 101 mmol/L (98-107); CREATININE 1.05 mg/dL (0.70-1.30); EST CRCL DRUG DOSING (CG) 103.59 mL/min; ESTIMATED GFR 94 mL/min (>=60); GLUCOSE RANDOM 123 mg/dL (70-99); MAGNESIUM 2.1 mg/dL (1.8-2.4); POTASSIUM,K 3.5 mmol/L (3.5-5.1); PROTEIN TOTAL,TP 7.9 g/dL (6.4-8.2); SODIUM,NA 137 mmol/L (136-145)
[2023-01-30 16:02] LABS: ETHANOL BLOOD MEDICAL < 3 mg/dL (0)
[2023-01-30] MEDS ORDERED: methylPREDNISolone Sodium Succinate 125 MG/2 ML SDV IM ONE (16:15)
[2023-01-30] MEDS ORDERED: Take Home: LORazepam 1 MG Tab, 2 Tab Pack PO ONE (16:16)
[2023-01-30 16:47] VITALS: BP 119/66; PULSE 84
== END 2023-01-30 16:47 | disposition home or self-care (01) ==
LOC: DL.ED 15:14
DX: R07.89 Other chest pain (principal); F41.9 Anxiety disorder, unspecified; F17.210 Nicotine dependence, cigarettes, uncomplicated; Z79.899 Other long term (current) drug therapy
CPT/HCPCS: 36415; 71045; 80053; 80307; 83605; 83735; 84145; 84484; 85025; 85610; 85730; 86140; 93005; 93010; 96372; 99284; 99285; A9270; J2930; J3490

== ENCOUNTER 2023-03-16 16:08 | Emergency (ER) | payer MEDICAID ==
[2023-03-16] MEDS ORDERED: Sodium Chloride 0.9% 10 ML Syringe FLUSH PRN (16:16)
[2023-03-16 16:36] LABS: BASOPHILS PERCENT AUTO 0.4 % (0.0-1.0); EOSINOPHILS PERCENT AUTO 1.7 % (1.0-3.0); HEMATOCRIT 47.5 % (40.0-54.0); HEMOGLOBIN 16.4 g/dL (14.0-18.0); LYMPHOCYTES PERCENT AUTO 44.8 % (20.5-50.1); MEAN CORPUSCULAR HEMOGLOBIN 28.9 pg (27.0-34.0); MEAN CORPUSCULAR HGB CONC 34.5 g/dL (33.0-35.0); MEAN CORPUSCULAR VOLUME 83.8 fL (80-100); MONOCYTES PERCENT AUTO 6.6 % (2-8); NEUTROPHILS PERCENT AUTO 46.5 % (42.2-75.2); PLATELET COUNT,PLT 236 10^3/uL (150-450); RED BLOOD CELL COUNT 5.67 10^6/uL (4.6-6.2); WHITE BLOOD CELL COUNT,WBC 5.5 10^3/uL (5.0-10.0)
[2023-03-16] MEDS ORDERED: LORazepam 2 MG/ML SDV IVPUSH ONE (16:47)
[2023-03-16 17:01] LABS: PROTHROMBIN TIME 10.6 SEC (9.0-12.0); PTT,PARTIAL THROMBOPLSTIN TIME 27.2 SEC (22.0-34.0)
[2023-03-16 17:05] LABS: A/G RATIO 1.2; ANION GAP 14.8 mEq/L (7-13); BILIRUBIN TOTAL 1.3 mg/dL (0.2-1.0); BUN/CREATININE RATIO 12.5 (No establ ref range); CREATININE 1.04 mg/dL (0.70-1.30); EST CRCL DRUG DOSING (CG) 104.58 mL/min; MAGNESIUM 2.1 mg/dL (1.8-2.4); POTASSIUM,K 3.8 mmol/L (3.5-5.1); PROTEIN TOTAL,TP 7.4 g/dL (6.4-8.2); TSH ULTRASENSITIVE 1.79 uIU/mL (0.36-3.74)
[2023-03-16] MEDS ORDERED: Ketorolac 30 MG/ML SDV IVPUSH ONE (17:13)
[2023-03-16 17:14] VITALS: BP 130/73; PULSE 68
== END 2023-03-16 18:10 | disposition home or self-care (01) ==
LOC: DL.ED 16:08
DX: F41.9 Anxiety disorder, unspecified (principal); R07.89 Other chest pain; Z79.899 Other long term (current) drug therapy
CPT/HCPCS: 36415; 71045; 80053; 83735; 84443; 84484; 85025; 85610; 85730; 93005; 93010; 96374; 96375; 99284; 99285-25; J1885; J2060; J3490

== ENCOUNTER 2023-08-04 13:40 | Emergency (ER) | payer MEDICAID ==
[2023-08-04 13:55] VITALS: BP 130/94; PULSE 63
[2023-08-04 14:19] LABS: BASOPHILS PERCENT AUTO 0.6 % (0.0-1.0); HEMATOCRIT 48.5 % (40.0-54.0); HEMOGLOBIN 16.4 g/dL (14.0-18.0); LYMPHOCYTES PERCENT AUTO 33.7 % (20.5-50.1); MEAN CORPUSCULAR HEMOGLOBIN 28.9 pg (27.0-34.0); MEAN CORPUSCULAR HGB CONC 33.8 g/dL (33.0-35.0); MEAN CORPUSCULAR VOLUME 85.5 fL (80-100); MONOCYTES PERCENT AUTO 4.9 % (2-8); NEUTROPHILS PERCENT AUTO 54.8 % (42.2-75.2); PLATELET COUNT,PLT 231 10^3/uL (150-450); RED BLOOD CELL COUNT 5.67 10^6/uL (4.6-6.2); WHITE BLOOD CELL COUNT,WBC 6.7 10^3/uL (5.0-10.0)
[2023-08-04 14:42] LABS: AMPHETAMINES,URINE NEGATIVE (NEGATIVE); APPEARANCE,URINE CLEAR (CLEAR); BARBITURATES,URINE NEGATIVE (NEGATIVE); BENZODIAZEPINE,URINE NEGATIVE (NEGATIVE); BILIRUBIN,URINE NEGATIVE (NEGATIVE); COLOR,URINE YELLOW (YELLOW); GLUCOSE,URINE NEGATIVE (NEGATIVE); KETONES,URINE NEGATIVE (NEGATIVE); LEUKOCYTE ESTERASE,URINE NEGATIVE (NEGATIVE); MDMA (ECSTASY), URINE NEGATIVE (NEGATIVE); METHADONE,URINE NEGATIVE (NEGATIVE); METHAMPHETAMINES,URINE NEGATIVE (NEGATIVE); NITRITE,URINE NEGATIVE (NEGATIVE); OCCULT BLOOD,URINE NEGATIVE (NEGATIVE); OPIATES,URINE NEGATIVE (NEGATIVE); OXYCODONE,URINE NEGATIVE (NEGATIVE); PH,URINE 7.5 (5.0-9.0); PHENCYCLIDINE,URINE NEGATIVE (NEGATIVE); PROTEIN,URINE NEGATIVE (NEGATIVE); TCA,URINE NEGATIVE (NEGATIVE); UROBILINOGEN,URINE 0.2 mg/dL (0.2-1.0)
[2023-08-04 14:47] LABS: A/G RATIO 1.1; ALBUMIN 4.3 g/dL (3.4-5.0); ANION GAP 8.7 mEq/L (7-13); BILIRUBIN TOTAL 1.6 mg/dL (0.2-1.0); BUN/CREATININE RATIO 7.3 (No establ ref range); CALCIUM 10.1 mg/dL (8.5-10.1); CREATININE 1.23 mg/dL (0.70-1.30); EST CRCL DRUG DOSING (CG) 88.43 mL/min; POTASSIUM,K 3.7 mmol/L (3.5-5.1); PROTEIN TOTAL,TP 8.2 g/dL (6.4-8.2); TSH ULTRASENSITIVE 1.88 uIU/mL (0.36-3.74)
[2023-08-04] MEDS: Ibuprofen 600 MG Tab PO ONE (15:16)
== END 2023-08-04 16:20 | disposition home or self-care (01) ==
LOC: DL.ED 13:40
DX: R00.2 Palpitations (principal); R07.9 Chest pain, unspecified; Z79.899 Other long term (current) drug therapy
CPT/HCPCS: 36415; 71046; 80053; 80305-QW; 81003; 82550; 83690; 83735; 84443; 84484; 85025; 93005; 99285; A9270-GY